=== PATIENT | female | born 1995 | race Caucasian/White ===

== ENCOUNTER 2017-11-25 14:22 | Inpatient (IN) ==
[2017-11-25] MEDS ORDERED: CALCIUM CARBONATE Chewable 500mg TABLET PO PRN (14:44)
[2017-11-25] MEDS ORDERED: ACETAMINOPHEN 500 MG TABLET PO PRN (14:44)
[2017-11-25] MEDS ORDERED: LIDOCAINE 1% (10mg/ml) 2mL INJ PF SDV ID PRN (14:44)
[2017-11-25] MEDS ORDERED: METHYLERGONOVINE 0.2 MG/ML INJECTION IM PRN (14:44)
[2017-11-25] MEDS ORDERED: CARBOPROST 250 MCG/ML INJECTION IM PRN (14:44)
[2017-11-25] MEDS ORDERED: OXYTOCIN DRIP 30 UNIT/500 ML ML IV PRN (14:44)
[2017-11-25] MEDS ORDERED: MAG-AL + SIM ORAL LIQUID 30ml PO PRN (14:44)
[2017-11-25] MEDS ORDERED: AMPICILLIN 2 GM in NS 100 ML IV ONE (15:00)
[2017-11-25] MEDS: LR 1,000 ML IV PRN ×2 (15:03→23:51)
[2017-11-25] MEDS: D5LR 1,000 ML IV PRN (15:15)
--- NOTE | 2017-11-25 16:20 | Anesthesia Preoperative Report ---
Anesthesia Epidural/Spinal Rec - Date and Time Date: 11/25/17 Preoperative Diagnosis: labor, , 37+6 Procedure: Labor Epidural Plan: Epidural - Vital Signs NPO since: 1300 full meal /Para: P:0 Heart Rate: 140 - Medictaions & Allergies Inpatient Medications: Current Medications Acetaminophen (Tylenol) 500 - 1,000 mg PO Q4H PRN PRN Reason: Pain Al Hydroxide/Mg Hydroxide (Maalox Plus) 30 ml PO Q3H PRN PRN Reason: Indigestion Calcium Carbonate (Tums) 500 - 1,000 mg PO Q2H PRN PRN Reason: Indigestion Carboprost Tromethamine (Hemabate) 250 mcg IM O PRN PRN Reason: .Downtime Lactated Ringer's (Lactated Ringers) 1,000 mls @ 999 mls/hr IV .Q1H1M PRN Last Admin: 11/25/17 15:03 Dose: 999 mls/hr Oxytocin (Pitocin Drip) 30 unit in 500 mls @ 2 mls/hr IV .Q24H PRN; Protocol PRN Reason: Induction/Augmentation Last Admin: 11/25/17 15:15 Dose: 2 mls/hr Dextrose/Lactated Ringer's (Dextrose 5%-Lactated Ringers) 1,000 mls @ 125 mls/ hr IV .Q8H PRN PRN Reason: Labor Last Admin: 11/25/17 15:15 Dose: 125 mls/hr Ampicillin Sodium 1 gm/ Sodium (Chloride) 100 mls @ 200 mls/hr IV Q4H SUMEET Lidocaine HCl (Xylocaine-Mpf 1% Vial) 0.2 mg ID O PRN PRN Reason: IV Start Methylergonovine Maleate (Methergine) 0.2 mg IM O PRN Misoprostol (Cytotec) 800 mcg UT ONCE PRN Allergies/Adverse Reactions: Allergies Allergy/AdvReac Type Severity Reaction Status Date / Time No Known Allergies Allergy Verified 11/23/17 11:38 - Home Medications Home Medications: Home Medications Medication Instructions Recorded Confirmed Type Vitamin Tab [Rudi 1 tab PO DAILY 11/23/17 11/23/17 History ] - Medical History Neuro/Musculoskeletal: Reports: Back Problems (low back pain with ), Other - Surgical History Anesthesia Reactions: None Hx Family Anesthesia Reaction: No History of Motion Sickness: No - Pertinent Findings Lab Data: CBC and BMP 11/25/17 14:57 - Physical Exam Respiratory Exam: lungs clear, bilateral breath sounds equal Cardiovascular Exam: regular rate and rhythm, no murmur - Airway Assessment Mallampati Score: I TMD: 3 Fingerbreadths Neck Extension: good Overall Assessment: may be difficult intubation - ASA ASA Score: 2 - Discussion Discussion: Discussed risks/options/alternatives of anesthesia and questions answered. Patient consents. Nursing pain assessment noted. Attestation Statement: Prior to the delivery of any anesthetic medication, I examined the patient, developed the plan, obtained the patient's consent and discussed the risk and benefits of the procedure with the patient/guardian.
[2017-11-25 18:24] VITALS: BMI 27.1
[2017-11-25] MEDS: AMPICILLIN 1 GM in NS 100 ML IV SCH ×2 (19:03→23:01)
[2017-11-25] MEDS ORDERED: ONDANSETRON 4 MG/2 ML INJECTION IVP PRN (21:06)
[2017-11-25] MEDS ORDERED: ROPIVACAINE 1% 10MG/ML INJ 200 MG, SUFentanil 50 MCG in NS 100 ML EPI PRN (21:06)
[2017-11-25] MEDS ORDERED: NALOXONE 0.4 MG/ML INJECTION IVP PRN (21:06)
[2017-11-25] MEDS ORDERED: DiphenhydrAMINE 50 MG/ML INJECTION IVP PRN (21:06)
[2017-11-26] MEDS: D5LR 1,000 ML IV PRN
[2017-11-26] MEDS ORDERED: DiphenhydrAMINE 25 MG CAPSULE PO PRN (08:46)
[2017-11-26] MEDS ORDERED: MAG-AL + SIM ORAL LIQUID 30ml PO PRN (08:46)
[2017-11-26] MEDS ORDERED: HYDROCORTISONE 2.5% CREAM 30gm RECTALLY PRN (08:46)
[2017-11-26] MEDS ORDERED: CALCIUM CARBONATE Chewable 500mg TABLET PO PRN (08:46)
[2017-11-26] MEDS ORDERED: ACETAMINOPHEN 500 MG TABLET PO PRN (08:46)
--- NOTE | 2017-11-26 08:46 | OB/GYN Procedure Note ---
Delivery date: 11/26/17 Events: Premature Rupture of Membrane, Prolonged Rupture of Membrane Induction method: per pitocin protocol Delivery monitor: external FHT, internal uterine Route of delivery: Episiotomy description: None Laceration description: Vaginal - 2nd Degree Delivery repair: vicryl, chromic Estimated blood loss (mL): 550 Anesthesia type: Epidural Disposition: floor - [place] Baby 1 gender: Male presentation: Vertex Placenta delivery description: Spontaneous cord vessel description: 3 Vessels at 1 minute: 8 at 5 minutes: 9
[2017-11-26] MEDS ORDERED: DOCUSATE CALCIUM 240 MG CAPSULE PO SCH (09:00)
[2017-11-26] MEDS ORDERED: OXYTOCIN DRIP 30 UNIT/500 ML ML IV SCH ×2 (09:00)
--- NOTE | 2017-11-26 10:45 | Anesthesia Postoperative Note ---
- Date and Time Date: 11/26/17 Time: 10:44 - Status Patient Participated in Evaluation: Patient Participated in Person Vital Signs: Pulse Oximetry 98 11/25/17 22:11 Respiratory Function: Airway Patent EKG: Sinus Rhythm Mental Status: Alert and Oriented Pain Intensity: 0 Hydration: Taking PO Fluids Complications During Recover: None Apparent - Follow-Up Instructions Instructions: Per Surgeon
[2017-11-26] MEDS: IBUPROFEN 800 MG TABLET PO PRN ×2 (10:55→18:48)
[2017-11-26] MEDS: PRENATAL VITAMIN TABLET PO SCH (10:57)
[2017-11-26] MEDS: FERROUS SULFATE 324 MG TABLET PO SCH (10:58)
--- NOTE | 2017-11-26 12:41 | Labor and Delivery Note ---
DATE OF DELIVERY: 11/26/2017 DELIVERY NOTE There was a normal spontaneous vaginal delivery of a live male named Chapincito over intact perineum with epidural anesthesia. No meconium was noted. There was a nuchal cord that was tight x 1 that was delivered through. There was spontaneous delivery of the placenta with a three-vessel cord. There was a right second-degree vaginal laceration repaired with 2-0 Vicryl in a normal fashion and bilateral labial's, first-degree, that were repaired with 3-0 chromic in the normal fashion. Estimated blood loss was 550 ml. She was diagnosed with hemorrhage and was given Pitocin in the active management of the third stage of labor along with Methergine and rectal Cytotec. This was a G1, P0 that presented at 37 weeks and 6 days with premature rupture of membranes. She was noted to be approximately 2-3 cm dilated and 80% effaced on presentation and was started on Pitocin. She underwent induction with the Pitocin protocol and progressed rather slowly over the first 8 hours of the induction. She did get epidural anesthesia and tolerated that well. Finally, once she made it to 6 cm, she progressed at a normal pace, about a centimeter an hour, and made descent into the pelvis until she was AC and approximately +1 station. She had an anterior lip that eventually resolved with time and ongoing induction and was noted to be +2. She pushed for approximately 2 hours and made good progress. The baby was initially assessed at OP position but did rotate during the second stage of labor. At the time of delivery mom was diagnosed with a maternal fever and the had a fever as well due to delivery. We will hold off on antibiotics. There was no foul smell, tachycardia, maternal tachycardia or fundal tenderness. [facility]
[2017-11-26] MEDS: Oxycodone/Acetaminophen 5/325 1 TAB PO PRN ×4 (12:57→23:33)
[2017-11-27 02:24] VITALS: O2SAT 98
[2017-11-27] MEDS: IBUPROFEN 800 MG TABLET PO PRN ×3 (03:59→22:45)
[2017-11-27] MEDS: Oxycodone/Acetaminophen 5/325 1 TAB PO PRN ×5 (04:00→22:45)
--- NOTE | 2017-11-27 10:13 | OB/GYN Progress Note ---
OB-PP Progress Note - General PPD1 Maternal Group B Strep: Positive Maternal blood type: A+ Maternal Rubella Status: Immune - Subjective Date: 11/27/17 Lochia: Minimal Pain: moderate Voiding: voiding Nausea or Vomiting Present: Yes (nauseated, no vomiting) - Objective Vital Signs: Last Vital Signs Temp 98 F 11/27/17 04:04 Pulse 85 11/27/17 00:23 Resp 16 11/27/17 04:04 BP 129/81 11/27/17 04:04 Pulse Ox 98 11/27/17 04:04 General: alert and oriented Abdomen: fundus firm, non-tender Extremities: non-tender Edema: none Laboratory: Laboratory Results - last 24 hr 11/27/17 07:07 WBC 9.3 RBC 3.44 L Hgb 8.5 L D Hct 26.6 L D MCV 77.3 L MCH 24.7 L MCHC 32.0 RDW Std Deviation 38.8 Plt Count 166 MPV 9.0 L - Assessment Assessment: SP, , Anemia - Plan Plan: routine care, iron Expected date of discharge: 11/28/17 Discussed pain control, will try food then po pain meds. Q&A
[2017-11-27] MEDS: FERROUS SULFATE 324 MG TABLET PO SCH (10:28)
[2017-11-27] MEDS: PRENATAL VITAMIN TABLET PO SCH (10:28)
[2017-11-28] MEDS: Oxycodone/Acetaminophen 5/325 1 TAB PO PRN ×3 (02:35→10:52)
[2017-11-28] MEDS: IBUPROFEN 800 MG TABLET PO PRN (06:53)
[2017-11-28 07:11] VITALS: BP 111/71; PULSE 83; RESP 16; TEMP 97.7
[2017-11-28] MEDS: PRENATAL VITAMIN TABLET PO SCH (09:59)
[2017-11-28] MEDS: FERROUS SULFATE 324 MG TABLET PO SCH (09:59)
[2017-11-28] MEDS ORDERED: DOCUSATE CALCIUM 240 MG CAPSULE PO SCH (10:45)
== END 2017-11-28 12:05 | disposition home or self-care (01) | DRG 774 ==
LOC: MC 14:24 → OBOBS 14:24 → MC 14:38
PROVIDERS: ADMIT Obstetrics & Gynecology; ATTEND Obstetrics & Gynecology